=== PATIENT | female | born 1960 | race Caucasian/White ===

== ENCOUNTER → 2016-11-20 | Outpatient (CLI) | payer BC ==
--- NOTE | 2016-11-20 17:09 | DI ---
XR HIP B/L MIN 2VW, EACH HIP,11/20/2016 11:26 AM: Clinical History: Bilateral hip pain Previous Exam: None at this facility. Findings: AP and frog-leg views of both hips are obtained, and demonstrate anatomic alignment without fractures . The surrounding soft tissues are unremarkable. Intra-abdominal structures are also unremarkable. No pathologic calcifications are seen. Impression: Normal bilateral hips.
== END ==
LOC: RAD 11:16
PROVIDERS: ATTEND Physician Assistant Surgical
DX: M25.552 Pain in left hip (principal); M25.551 Pain in right hip
CPT/HCPCS: 73521